=== PATIENT | male | born 1975 | race Caucasian/White ===

== ENCOUNTER 2016-03-12 09:34 | Emergency (ER) | payer OTHER ==
[2016-03-12] MEDS ORDERED: IBUPROFEN 800 MG TABLET ONE (10:26)
--- NOTE | 2016-03-12 11:27 | RAD ---
Exam: Complete left shoulder COMPARISON: None INDICATION: Slipped in snow, left shoulder pain. Initial encounter. Findings: AP, Grashey and transscapular y views of the left shoulder were obtained. Overall normal bone mineralization. Alignment is normal. No fracture is identified. Visualized left hemithorax within normal limits. IMPRESSION: No acute osseous abnormality in the left shoulder.
== END 2016-03-12 10:59 | disposition home or self-care (01) ==
LOC: ED 09:34
DX: M25.512 Pain in left shoulder (principal); W17.89XA Other fall from one level to another, initial encounter; Y93.H3 Activity, building and construction; Y92.838 Other recreation area as the place of occurrence of the external cause; Y99.0 Civilian activity done for income or pay
CPT/HCPCS: 73030; 99283 ×2; A9270